=== PATIENT | male | born 1965 | race Caucasian/White ===

== ENCOUNTER 2020-04-13 20:16 | Emergency (ER) | payer OTHER ==
[~2020-04-13] VITALS: Ht 180.3 cm; Wt 74.4 kg
== END 2020-04-13 23:44 | disposition home or self-care (01) ==
LOC: ED 20:16
DX: M79.89 Other specified soft tissue disorders (principal); Z46.89 Encounter for fitting and adjustment of other specified devices; Z88.6 Allergy status to analgesic agent; Z88.8 Allergy status to other drugs, medicaments and biological substances

== ENCOUNTER 2021-05-03 15:10 | Emergency (ER) | payer OTHER ==
[~2021-05-03] VITALS: Ht 180.3 cm; Wt 74.4 kg
== END 2021-05-03 18:07 | disposition home or self-care (01) ==
LOC: ED 15:10
DX: Z48.01 Encounter for change or removal of surgical wound dressing (principal); Z46.89 Encounter for fitting and adjustment of other specified devices; M79.605 Pain in left leg; Z91.048 Other nonmedicinal substance allergy status; Z88.8 Allergy status to other drugs, medicaments and biological substances; Z88.5 Allergy status to narcotic agent